=== PATIENT | male | born 1935 | race Caucasian/White ===

== ENCOUNTER 2017-04-08 10:06 | Outpatient (CLI) | payer MEDICARE, OTHER ==
[~2017-04-08] VITALS: Ht 172.7 cm; Wt 114.3 kg
[~2017-04-08 10:06] MED LIST: AML5T; ASP81CT; CLPD75T; FEXO60CA19; FRSM40T; KCL10CCR; LSNP20T; MTP25TSR PO; NF-NI250ER; PNT40TEC; ROSU10TA12; [UNRECOGNIZED DRUG - CODE]
[2017-04-08 10:20] VITALS: BP 129/72
[2017-04-08 10:52] LABS: BASOPHILS % (AUTO) 0 % (0-10); EOSINOPHILS # (AUTO) 0.1 10^3/uL (0.0-0.3); EOSINOPHILS % (AUTO) 1 % (0-10); HEMATOCRIT 43 % (40-54); HEMOGLOBIN 14.7 G/DL (13.3-17.7); LYMPHOCYTES # (AUTO) 3.8 X 10^3 (1.0-4.0); LYMPHOCYTES % (AUTO) 32 % (12-44); MEAN CORPUSCULAR HEMOGLOBIN 32 PG (25-34); MEAN CORPUSCULAR HGB CONC 34 G/DL (32-36); MEAN CORPUSCULAR VOLUME 94 FL (80-99); MEAN PLATELET VOLUME 10.2 FL (7.4-10.4); MONOCYTES # (AUTO) 1.7 X 10^3 (0.0-1.0); MONOCYTES % (AUTO) 14 % (0-12); NEUTROPHILS # (AUTO) 6.3 X 10^3 (1.8-7.8); NEUTROPHILS % (AUTO) 53 % (42-75); PLATELET COUNT 219 10^3/uL (130-400); RED BLOOD COUNT 4.56 10^6/uL (4.35-5.85); RED CELL DISTRIBUTION WIDTH 12.7 % (10.0-14.5); WHITE BLOOD COUNT 11.8 10^3/uL (4.3-11.0)
--- NOTE | 2017-04-08 11:03 | Diagnostic Imaging Report ---
INDICATION: Preop for sinus surgery. COMPARISON: 06/03/2012. FINDINGS: Frontal and lateral views of the chest demonstrate clear lungs bilaterally. The heart is normal. There is no pneumothorax. Osseous structures normal. IMPRESSION: Negative chest. Dictated by: Dictated on workstation # [id number]
[2017-04-08 11:14] LABS: BUN/CREATININE RATIO 18; CALCIUM 9.2 MG/DL (8.5-10.1); CARBON DIOXIDE 29 MMOL/L (21-32); CHLORIDE 105 MMOL/L (98-107); CREATININE SERUM 0.96 MG/DL (0.60-1.30); GFR ESTIMATED > 60; GLUCOSE 86 MG/DL (70-105); POTASSIUM 3.8 MMOL/L (3.6-5.0); SODIUM 143 MMOL/L (135-145)
[2017-04-08] MEDS ORDERED: LISI40TA PO (11:53)
[2017-04-08] MEDS ORDERED: FURO40TA4 PO (11:53)
[2017-04-08] MEDS ORDERED: CLOP75TA28 PO (11:53)
[2017-04-08] MEDS ORDERED: NIAC500T24 PO (11:53)
[2017-04-08] MEDS ORDERED: ASPI-999 PO (11:53)
[2017-04-08] MEDS ORDERED: AMLO10TA2 PO (11:53)
[2017-04-08] MEDS ORDERED: POTA-51 PO (11:53)
[2017-04-08] MEDS ORDERED: PANT40TA3 PO (11:53)
[2017-04-08] MEDS ORDERED: ROSU20TA30 PO (11:53)
[2017-04-08] MEDS ORDERED: CETI10TA17 PO (11:57)
[2017-04-08] MEDS ORDERED: MELO15TA39 PO (11:57)
[2017-04-08] MEDS ORDERED: POLY119P5 PO (11:57)
[2017-04-08] MEDS ORDERED: DICY10CA12 PO (11:57)
[2017-04-08] MEDS ORDERED: GUAI400T71 PO (11:57)
[2017-04-08] MEDS ORDERED: METO-387 PO (11:57)
[2017-04-08] MEDS ORDERED: TRIA10.8 NSEACH (11:57)
[2017-04-08] MEDS ORDERED: DIME50TA PO (11:57)
== END 2017-04-08 10:50 | disposition home or self-care (01) ==
LOC: PREOP 10:06
PROVIDERS: ATTEND Otolaryngology Otolaryngology/Facial Plastic Surgery
DX: Z01.811 Encounter for preprocedural respiratory examination (principal); Z01.812 Encounter for preprocedural laboratory examination; Z11.2 Encounter for screening for other bacterial diseases; J32.9 Chronic sinusitis, unspecified
CPT/HCPCS: 36415; 71046; 80048; 85025; 87081

== ENCOUNTER 2017-04-15 08:01 | Day surgery (SDC) | payer MEDICARE, OTHER ==
[~2017-04-15] VITALS: Ht 172.7 cm; Wt 114.3 kg
[~2017-04-15 08:01] MED LIST changes: +AMLO10TA2 PO; +ASPI-999 PO; +CETI10TA17 PO; +CLOP75TA28 PO; +DICY10CA12 PO; +DIME50TA PO; +FURO40TA4 PO; +GUAI400T71 PO; +LISI40TA PO; +MELO15TA39 PO; +METO-387 PO; +NIAC500T24 PO; +PANT40TA3 PO; +POLY119P5 PO; +POTA-51 PO; +ROSU20TA30 PO; +TRIA10.8 NSEACH
[2017-04-15] MEDS ORDERED: HYDROCORTISONE 100 MG/2 ML (Solu-CORTEF) VIAL IV ONE ×2 (08:30→08:45)
[2017-04-15] MEDS ORDERED: LACTATED RINGERS 1,000 ML IV PRN (08:44)
[2017-04-15] MEDS ORDERED: AMPICILLIN/SULBACTAM INJECTION 1.5 GM in NS (IVPB) 50 ML IV ONE (08:45)
[2017-04-15] MEDS: AMPICILLIN/SULBACTAM 1.5 GM/NS 50 ML IVPB IV ONE ×6 (08:47→10:52)
[2017-04-15 08:50] VITALS: BP 146/81
[2017-04-15] MEDS ORDERED: BSS 15 ML ONE (09:28)
[2017-04-15] MEDS ORDERED: COCAINE HCL 4% 2 ML SYR ONE (09:29)
[2017-04-15] MEDS ORDERED: PHENYLEPHRINE 0.5% NASAL SPR (NEO-SYNEPHRINE) REG ONE (09:29)
[2017-04-15] MEDS ORDERED: LIDOCAINE/EPI 1%-1:200,000 (XYLOCAINE) 10 ML VIAL ONE ×2 (09:29→09:31)
[2017-04-15] MEDS ORDERED: ONDANSETRON 4 MG/2 ML (SDV) Z0FRAN ONE (09:31)
[2017-04-15] MEDS ORDERED: ROCURONIUM 50 MG/5 ML (ZEMURON) VIAL IV ONE (09:31)
[2017-04-15] MEDS ORDERED: MIDAZOLAM 2 MG/2 ML (VERSED) VIAL ONE (09:31)
[2017-04-15] MEDS ORDERED: SEVOFLURANE (ULTANE) 15 ML INHAL SOLN ONE (09:31)
[2017-04-15] MEDS ORDERED: DEXAMETHASONE 10 MG/ML (DECADRON) 1 ML VIAL ONE (09:31)
[2017-04-15] MEDS ORDERED: fentaNYL INJECTION 100 MCG/2 ML AMP ONE (09:31)
[2017-04-15] MEDS ORDERED: LIDOCAINE PF 2% 5 ML (XYLOCAINE) VIAL ONE (09:32)
[2017-04-15] MEDS ORDERED: proPOfol 200 MG/20 ML (DIPRIVAN) VIAL IV ONE (09:32)
[2017-04-15] MEDS ORDERED: GLYCOPYRROLATE 0.2 MG/ML (ROBINUL) 2 ML VIAL ONE (10:56)
[2017-04-15] MEDS ORDERED: NEOSTIGMINE (BLOXIVERZ ) 1 MG/1ML 10 ML VIAL ONE (10:56)
[2017-04-15] MEDS ORDERED: D5 1/2 NS W/KCL 20 MEQ/L 1,000 ML IV SCH (11:19)
--- NOTE | 2017-04-15 11:19 | Progress Note-Post Operative ---
Post-Operative Progess Note Surgeon (s)/Vice President For Philanthropy (s) Surgeon NAJMA ARREAGA MD Vice President For Philanthropy n/a Pre-Operative Diagnosis CHRONIC PARASINUSITIS Post-Operative Diagnosis same Post-Op Procedure Note Date of Procedure: Apr 15, 2017 Name of Procedure Performed: Bilat ESs, Bialt REd of Inf Turbs Description & Findings Description and Findings: n/a Anesthesia Type get Estimated Blood Loss 100cc Packing dnp bilat. Specimen(s) collected/removed bilat chornic sinus disease NAJMA ARREAGA MD Apr 15, 2017 11:19 am
[2017-04-15] MEDS ORDERED: PROMETHAZINE INJ 25 MG/ML (PHENERGAN) AMP IVP PRN (11:30)
[2017-04-15] MEDS ORDERED: HYDROcodone/APAP 5 MG/325 MG (LORTAB) TAB PO PRN (11:30)
[2017-04-15] MEDS ORDERED: morphine INJ 10 MG/ML 1ML (SYR OR VIAL) IVP PRN (11:30)
[2017-04-15] MEDS ORDERED: ACETAMINOPHEN 325 MG TABLET/CAPLET (TYLENOL) PO PRN (11:30)
[2017-04-15] MEDS ORDERED: ONDANSETRON 4 MG/2 ML (SDV) Z0FRAN IVP PRN (11:30)
[2017-04-15] MEDS ORDERED: predniSONE 20 MG TAB PO ONE (11:30)
[2017-04-15 12:15] VITALS: BP 146/81
[2017-04-15 12:45] VITALS: BP 169/91
[2017-04-15] MEDS ORDERED: HYDR-3812 PO (12:57)
[2017-04-15] MEDS ORDERED: PRD20T PO (12:57)
[2017-04-15] MEDS ORDERED: AMOX-355 PO (12:57)
[2017-04-15 13:15] VITALS: BP 164/91
[2017-04-15 14:15] VITALS: BP 166/92
[2017-04-15] MEDS ORDERED: predniSONE 20 MG TAB ONE (14:18)
[2017-04-15 14:30] VITALS: BP 166/92
--- OUTSIDE RECORDS SUMMARY | 2017-04-15 16:23 | XMS REPORT ---
Author Author [facility] Medical Staff Organization [facility] Address [address] [id number] Phone [phone] Care Team Providers Care Lead Care Manager Name Role Phone AMAURI JOHN MD, PP [phone] Summary purpose TRANSITION OF CARE AUTO GENERATION Chief Complaint and Reason for Visit No authorized Reason for Visit (Admitting Diagnosis) is available for this visit. Problem list No authorized problems tracked for continuity of care are available for this visit. Encounters No authorized problems tracked for encounter diagnoses are available for this visit. Medications No medications recorded for this patient visit Allergies, adverse reactions, alerts Allergen Category Ingredient Status Reaction Severity Onset Lipitor Drug Allergy Lipitor Confirmed or Verified muscle pain Lipitor Drug Allergy atorvastatin Confirmed or Verified muscle pain Immunizations No immunizations recorded for this patient visit Relevant diagnostic tests and/or laboratory data RESULTS Routine Urinalysis [id number]:16:00 Result Normal Range Units Color Straw Clarity Clear Specific [place] 1.005 pH 7.0 4.5-8.0 Glucose NEGATIVE Bilirubin NEGATIVE Ketones NEGATIVE Protein NEGATIVE Urobilinogen 0.2 0-0.2 E.U./dL Nitrites NEGATIVE Blood NEGATIVE Leukocytes NEGATIVE WBCs 0-5 RBCs No RBC's Seen. Squamous Epithelial Few Bacteria Occasional Body Fluid [id number]:16:00 Result Normal Range Units pH 7.0 4.5-8.0 History of procedures No procedures recorded for this patient visit. Functional status No functional or cognitive status observations are available for this visit. Vital signs No authorized vital signs are available for this visit. Social history No Social History or smoking status observations were recorded for this visit. ( Unknown if ever smoked.) Treatment Plan No treatment plan text is available for this visit. Hospital discharge instructions No discharge instruction text is available for this visit.
--- OUTSIDE RECORDS SUMMARY | 2017-04-15 16:23 | XMS REPORT ---
Author Author [facility] Medical Staff Organization [facility] Address [address] [id number] Phone [phone] Care Team Providers Care Derrick Operator Name Role Phone AMAURI JOHN MD, PP [phone] Summary purpose TRANSITION OF CARE AUTO GENERATION [...] visit Relevant diagnostic tests and/or laboratory data No authorized results are available for this patient visit History of procedures No procedures recorded for this patient visit. Functional status Functional Status Finding Observation Time IV Site Location right a/c :55 IV Type peripheral 51-85-519911:55 IV Site Information discontinued :21 IV Site Start Attmpt 2 times :55 IV Site Ronald 20 :55 IV Site Appearance WNL [id number]:21 IV Site Color clear :21 IV Site Patent yes :21 Dressing Type gauze :21 Nursing Note Second set of scans completed. Verbal and written discharge instructions given. Patient voices understanding. Patient also given a to go bag with juice and peanut butter crackers. Chest pain remained at a "0" througout entire procedure. Patient ambulated from unit in good condition. :30 Vital signs Type Value Date Height 68inches :58 Weight 260LB :58 Social history No Social History or smoking status observations were recorded for this visit. ( Unknown if ever smoked.) Treatment Plan No treatment plan text is available for this visit. Hospital discharge instructions Discharge Date/Time 12/02/2014 1030 Accompanied By Dismissal Condition good Disposition on DC home Valuables yes Valuable Type billfold/purse Valuables Returned T patient DC Inst/Educ Give yes
--- OUTSIDE RECORDS SUMMARY | 2017-04-15 16:23 | XMS REPORT | Continuity of Care Document ---
Demographics x Preferred Language Unknown Marital Status Unknown Christianity Affiliation Unknown Race Unknown Ethnic Group Unknown Author Author [facility] Organization [facility] Address Unknown Phone Unavailable Allergies Active Description Code Type Severity Reaction Onset Reported/Identified Relationship to Patient Clinical Status Yes Lipitor 3287 Drug Allergy N/A muscle pain Yes Lipitor Drug N/A N /A Medications There is no data. Problems There is no data. Procedures [place] [address] URINALYSIS, AUTO W/SCOPE 09/19/2015 86113 URINE CULTURE/COLONY COUNT 09/19/2015 Results There is no data. Encounters ACCT No. Visit Date/Time Discharge Status Pt. Type Provider Facility Loc./Unit Complaint [id number] 12/02/2014 06:40:00 12/02/2014 06:40:00 DIS Outpatient AMAURI JOHN [facility] RAD [id number] 03/07/2014 15:25:00 03/07/2014 15:25:00 DIS Outpatient AMAURI JOHN [facility] RAD [id number] 01/14/2014 07:44:00 01/14/2014 07:44:00 DIS Outpatient AMAURI JOHN [facility] RAD [id number] 10/26/2013 06:32:00 10/26/2013 06:32:00 DIS Outpatient AMAURI JOHN [facility] RAD [id number] 09/19/2015 09:04:00 Document Registration [id number] 10/26/2013 06:32:12 Document Registration [id number] 10/26/2013 06:32:12 Document Registration [id number] 01/19/2017 06:41:25 01/19/2017 23:59:59 DIS Outpatient AMAURI JOHN [facility] RAD distended coronary artery, cad [id number] 01/04/2017 15:16:02 01/04/2017 23:59:59 DIS Outpatient Charlotte Delatorre [facility] [id number] 01/04/2017 14:22:43 01/04/2017 23:59:59 DIS Outpatient Charlotte Delatorre [facility] [id number] 01/04/2017 11:44:11 01/04/2017 23:59:59 DIS Outpatient NAJMA ARREAGA [facility] RAD [id number] 12/01/2016 15:03:33 12/01/2016 23:59:59 DIS Outpatient RUDDY COLLINS [facility] [id number] 12/01/2016 14:17:45 12/01/2016 23:59:59 DIS Outpatient DENNIS RUDDY [facility] [id number] 10/28/2016 10:37:19 10/28/2016 23:59:59 DIS Outpatient DENNIS RUDDY [facility] [id number] 10/28/2016 10:30:00 10/28/2016 23:59:59 DIS Outpatient DENNIS RUDDY [facility] [id number] 09/01/2016 10:29:11 09/01/2016 23:59:59 DIS Outpatient DENNIS RUDDY [facility] [id number] 09/01/2016 09:23:54 09/01/2016 23:59:59 DIS Outpatient RUDDY COLLINS [facility] [id number] 04/19/2016 09:30:00 04/19/2016 23:59:59 CLS Outpatient DENNIS RUDDY [facility] [id number] 04/16/2016 01:23:00 04/16/2016 23:59:59 CLS Emergency [facility] ED abd pain [id number] 02/05/2016 09:07:31 02/05/2016 23:59:59 CLS Outpatient [facility] [id number] 04/19/2016 09:56:38 Document Registration
--- OUTSIDE RECORDS SUMMARY | 2017-04-15 16:23 | XMS REPORT ---
Author Author [facility] Medical Staff Organization [facility] Address [address] [id number] Phone [phone] Care Team Providers Care Orchard Worker Name Role Phone AMAURI JOHN MD, PP [phone] Summary purpose TRANSITION OF CARE AUTO GENERATION [...] Relevant diagnostic tests and/or laboratory data RESULTS Radiology Results [id number]:46:00 MYOCARDIAL SPECT MULT PACs Image DATE OF EXAM: 2014 [id number] SPECT MULTIPLE : RADIOLOGY REPORT DATE OF SERVICE:12/02/14 HISTORY:Atherosclerotic heart disease, CAD PHARMACOLOGICAL STRESS AND RESTING MYOCIAL PERFUSION STUDY (Lexiscan Cardiolite study) 1030 HOURS The patient initially is given 9.8 mCi of technetium 99m labeled Cardiolite intravenously. After an 80 minute delay, resting SPECT perfusion images are obtained. The patient is then given the pharmacological stress agent by the referring clinician. At maximal stress, the patient is given 33.0 mCi of technetium 99m labeled Cardiolite intravenously. After a 70 minute delay, gated stress SPECT perfusion images are obtained. The stress SPECT perfusion images on both the gated and nongated study are normal. The resting images are also normal. There is no evidence for any reversible ischemia. On the gated study, the left ventricular ejection fraction is calculated at 70% which is normal. The end-systolic volume is 29 cc with the end-diastolic volume being 94 cc. There is normal segmental left ventricular cardiac wall motion and thickening present. IMPRESSION: 1. Normal stress and resting myocardial perfusion images. There is no evidence for any reversible ischemia. 2. The gated study has a left ventricular ejection fraction calculated at 70% which is normal. There is normal segmental left ventricular cardiac wall motion and thickening present. S MD QUIN BanksP/olga 12/02/2014 16:00:00 / 12/02/2014 16:02:46 cc:Dr. Amauri John This document has been electronically Signed by: On: History of procedures Procedure Code Code Type Description Date Performed Performing Physician 09157 CPT-4 HT MUSCLE IMAGE SPECT, MULT 12-02-2014 AMAURI JOHN 54516 CPT-4 CARDIOVASCULAR STRESS TEST 12-02-2014 AMAURI JOHN A9500 CPT-4 TC99M SESTAMIBI 12-02-2014 AMAURI JOHN J2785 CPT-4 REGADENOSON INJECTION 12-02-2014 AMAURI JOHN Functional status Functional Status Finding Observation Time IV Site Location right a/c 23-85-108935:55 IV Type peripheral 73-50-021833:55 IV Site Information discontinued 62-34-239174:21 IV Site Start Attmpt 2 times 39-78-176116:55 IV Site Roanld 20 54-70-834262:55 IV Site Appearance WNL 79-47-003478:21 IV Site Color clear :21 IV Site Patent yes :21 Dressing Type gauze :21 Nursing Note Patient is seeing [employer] Dispatcher today for treadmill results. 13:53 Vital signs Type Value Date Height 68inches :58 Weight 260LB 87-65-020486:58 Social history No Social History or smoking [...]
--- OUTSIDE RECORDS SUMMARY | 2017-04-15 16:23 | XMS REPORT ---
Author [facility] Medical [facility] Organization [facility] Address [address] [place], [place] [id number] Phone [phone] Care Team Providers Care Sharepoint Designer Developer Name Role Phone AMAURI JOHN MD, PP [phone] Summary purpose TRANSITION OF CARE AUTO GENERATION [...] tests and/or laboratory data RESULTS Routine Urinalysis [id number]:16:00 Result Normal Range Units Color Straw Clarity Clear Specific [place] 1.005 pH 7.0 4.5-8.0 Glucose NEGATIVE Bilirubin NEGATIVE Ketones NEGATIVE Protein NEGATIVE Urobilinogen 0.2 0-0.2 E.U./dL Nitrites NEGATIVE Blood NEGATIVE Leukocytes NEGATIVE WBCs 0-5 RBCs No RBC's Seen. Squamous Epithelial Few Bacteria Occasional Routine Cultures [id number]:16:00 Urine Culture Plate Date and Time 09/19/2015 09:36 SourceURINE CULTURE REPORT No Growth After 24 Hours Release Date/Time: 09/20/2015 07:36 CULTURE REPORT <10,000 colonies/ml Mixed Gram Pos Katie Release Date/Time: 09/21/2015 07:59 Body Fluid [id number]:16:00 Result Normal Range Units pH 7.0 4.5-8.0 History of procedures Procedure Code Code Type Description Date Performed Performing Physician 58046 CPT-4 URINALYSIS, AUTO W/SCOPE 09-19-2015 EMMY VALLADARES 57319 CPT-4 URINE CULTURE/COLONY COUNT 09-19-2015 EMMY VALLADARES Functional status No functional or cognitive status [...]
== END 2017-04-15 14:50 | disposition home or self-care (01) ==
LOC: SDC 08:01
PROVIDERS: ATTEND Otolaryngology Otolaryngology/Facial Plastic Surgery
DX: J32.0 Chronic maxillary sinusitis (principal); J32.1 Chronic frontal sinusitis; J32.2 Chronic ethmoidal sinusitis; J34.3 Hypertrophy of nasal turbinates; I10 Essential (primary) hypertension; G47.33 Obstructive sleep apnea (adult) (pediatric); Z79.02 Long term (current) use of antithrombotics/antiplatelets; Z79.82 Long term (current) use of aspirin; Z79.899 Other long term (current) drug therapy; Z87.891 Personal history of nicotine dependence; Z95.5 Presence of coronary angioplasty implant and graft; Z96.642 Presence of left artificial hip joint